=== PATIENT | female | born 2000 | race Two or more races ===

== ENCOUNTER 2022-07-31 11:37 | Emergency (ER) | payer OTHER ==
[~2022-07-31] VITALS: Ht 167.6 cm; Wt 73.9 kg
== END 2022-07-31 15:23 | disposition left against medical advice (07) ==
LOC: ER 11:37
DX: R10.31 Right lower quadrant pain (principal)

== ENCOUNTER 2024-12-20 17:15 | Emergency (ER) | payer OTHER ==
[~2024-12-20] VITALS: Ht 167.6 cm; Wt 70.3 kg
[2024-12-20] MEDS ORDERED: CEFTRIAXONE SODIUM 2,000 MG VIAL IV ONE (18:15)
[2024-12-20] MEDS ORDERED: KETOROLAC TROMETHAMINE 60 MG VIAL IM ONE ×2 (18:15→18:16)
[2024-12-20] MEDS ORDERED: CEFTRIAXONE SODIUM 2,000 MG VIAL ONE (18:16)
[2024-12-20 19:05] LABS: HEMOGLOBIN 13.1 g/dL (12.0-15.00); MEAN CELL VOLUME 93.8 fL (80.00-100.00); MEAN CORPUSCULAR HEMOGLOBIN 31.6 pg (27.00-32.0); MEAN CORPUSCULAR HGB CONC 33.7 g/dl (32.0-36.0); PLATELET COUNT 347 K/uL (150-450); RED BLOOD COUNT 4.15 M/uL (4.00-6.00); RED CELL DISTRIBUTION WIDTH 12.2 % (11.5-14.5)
== END 2024-12-20 20:07 | disposition home or self-care (01) ==
LOC: ER 17:15
PROVIDERS: General Practice
DX: H66.92 Otitis media, unspecified, left ear (principal)

== ENCOUNTER 2025-04-16 20:34 | Emergency (ER) | payer OTHER ==
[~2025-04-16] VITALS: Ht 167.6 cm; Wt 72.6 kg
[2025-04-16] MEDS ORDERED: KETOROLAC TROMETHAMINE 60 MG VIAL IM ONE ×2 (21:11→21:15)
[2025-04-16] MEDS ORDERED: DEBROX SWIMMER'30 ML OT (21:15)
[2025-04-16] MEDS ORDERED: NEOMYCIN/POLYMYXIN B/HYDROCORT 20 DR/ML BOTTLE OT ONE ×2 (21:19→21:30)
== END 2025-04-16 21:28 | disposition home or self-care (01) ==
LOC: ER 20:34
DX: H61.22 Impacted cerumen, left ear (principal)